=== PATIENT | female | born 1960 | race Caucasian/White ===

== ENCOUNTER 2017-11-29 12:53 | Day surgery (SDC) | payer OTHER ==
[~2017-11-29] VITALS: Ht 165.1 cm; Wt 105.4 kg
[~2017-11-29 12:53] MED LIST: ASPI81CH PO; ATOR40TA PO; GLIP2.5ER PO; LOSA50 PO; NEBI5 PO
== END 2017-11-29 15:13 | disposition home or self-care (01) ==
LOC: ORSCSDS 12:53
PROVIDERS: Ophthalmology
PROC: 08RJ3JZ Replacement of Right Lens with Synthetic Substitute, Percutaneous Approach (ICD-10-PCS; principal; 2017-11-29 14:30)
DX: H25.11 Age-related nuclear cataract, right eye (principal); I10 Essential (primary) hypertension; E11.9 Type 2 diabetes mellitus without complications; E78.5 Hyperlipidemia, unspecified; Z86.73 Personal history of transient ischemic attack (TIA), and cerebral infarction without residual deficits; E66.9 Obesity, unspecified; Z68.37 Body mass index [BMI] 37.0-37.9, adult; Z87.891 Personal history of nicotine dependence; Z79.82 Long term (current) use of aspirin; Z79.899 Other long term (current) drug therapy
CPT/HCPCS: 82947; J2250; J3010; V2632

== ENCOUNTER 2018-12-20 19:00 | Emergency (ER) | payer SELFPAY ==
[~2018-12-20] VITALS: Ht 167.6 cm; Wt 102.1 kg
[2018-12-20 19:34] LABS: BASOPHILS ABSOLUTE AUTO 0.03 K/mm3 (0.00-0.23); BASOPHILS PERCENT AUTO 0 % (0-2); EOSINOPHILS ABSOLUTE AUTO 0.23 K/mm3 (0.00-0.68); EOSINOPHILS PERCENT AUTO 3 % (0-6); Hematocrit 41.9 % (33.0-51.0); Hemoglobin 13.2 g/dL (11.5-16.0); IMMATURE GRAN ABSOLUTE AUTO 0.02 K/mm3 (0.00-0.10); IMMATURE GRAN PERCENT AUTO 0 % (0-1); LYMPHOCYTES ABSOLUTE AUTO 2.75 K/mm3 (0.84-5.20); LYMPHOCYTES PERCENT AUTO 35 % (21-46); MONOCYTES ABSOLUTE AUTO 0.39 K/mm3 (0.16-1.47); MONOCYTES PERCENT AUTO 5 % (4-13); Mean Corpuscular HGB 27.3 pg (26.0-34.0); Mean Corpuscular HGB Conc 31.5 g/dL (31.5-36.5); Mean Corpuscular Volume 87 fL (80-100); Mean Platelet Volume 9.5 fL (9.1-12.4); NEUTROPHILS ABSOLUTE AUTO 4.42 K/mm3 (1.96-9.15); NEUTROPHILS PERCENT AUTO 56 % (41-73); Platelet Count 267 K/mm3 (150-400); RDW Coefficient Variation 12.5 % (11.7-14.2); RDW Standard Deviation 39.7 fL (35.1-46.3); Red Blood Cell Count 4.83 M/mm3 (3.80-5.20); White Blood Cell Count 7.84 K/mm3 (4.00-11.30)
[2018-12-20 20:03] LABS: Alanine Aminotransfer (ALT/SGP 33 U/L (12-78); Albumin, Blood 3.9 g/dL (3.4-5.0); Albumin/Globulin Ratio 0.9 (0.8-1.8); Alk Phos 57 U/L (50-136); Anion Gap 8 mmol/L (6-16); Aspartate Aminotrans (AST/SGOT 25 U/L (12-37); Bilirubin, Total 0.4 mg/dL (0.1-1.0); Blood Urea Nitrogen 19 mg/dL (8-24); Bun/Creatinine Ratio 18.8 (12.0-20.0); CO2, Blood 27 mmol/L (21-32); Calcium, Blood 9.3 mg/dL (8.5-10.1); Chloride, Blood 105 mmol/L (98-108); Creatinine, Blood 1.01 mg/dL (0.40-1.00); Globulin, Blood 4.2 g/dL (2.2-4.0); Glomerular Filtration Rate 59 (60-); Glucose, Blood 157 mg/dL (70-99); Potassium, Blood 3.7 mmol/L (3.5-5.5); Sodium, Blood 140 mmol/L (136-145); Total Protein, Blood 8.1 g/dL (6.4-8.2); Troponin I <0.015 ng/mL (0.000-0.040)
[2018-12-20] MEDS ORDERED: CLOP75 PO (22:56)
== END 2018-12-20 23:30 | disposition home or self-care (01) ==
LOC: ER 19:00
PROVIDERS: Emergency Medicine
DX: R20.8 Other disturbances of skin sensation (principal); I10 Essential (primary) hypertension; Z88.0 Allergy status to penicillin; Z79.899 Other long term (current) drug therapy; Z79.82 Long term (current) use of aspirin; E11.9 Type 2 diabetes mellitus without complications; Z87.891 Personal history of nicotine dependence
CPT/HCPCS: 70450; 80053; 84484; 85025; 93005; 93010; 99284-25

== ENCOUNTER 2019-06-16 08:54 | Day surgery (SDC) | payer OTHER ==
[~2019-06-16] VITALS: Ht 167.6 cm; Wt 97.8 kg
[~2019-06-16 08:54] MED LIST changes: +CLOP75 PO
[2019-06-16] MEDS ORDERED: METF500C PO (09:28)
[2019-06-16] MEDS ORDERED: METO25ER PO (09:29)
[2019-06-16] MEDS ORDERED: ASCO500 (09:31)
[2019-06-16] MEDS ORDERED: ACET500 (09:31)
--- NOTE | 2019-06-16 10:21 | NUR ---
06/16/[address] AWARE OF PREOP BLOOD PRESSURE READINGS. NO ORDERS AT THIS TIME.
[2019-07-09] MEDS ORDERED: AMLO10 PO (14:21)
[2019-07-09] MEDS ORDERED: Vitamin D2000 UNIT PO (14:22)
== END 2019-06-16 11:32 | disposition home or self-care (01) ==
LOC: ORSCSDS 08:54
PROVIDERS: Internal Medicine Gastroenterology
PROC: 0DBM8ZX Excision of Descending Colon, Via Natural or Artificial Opening Endoscopic, Diagnostic (ICD-10-PCS; principal; 2019-06-16 10:30)
PROC: 0DBN8ZX Excision of Sigmoid Colon, Via Natural or Artificial Opening Endoscopic, Diagnostic (ICD-10-PCS; principal; 2019-06-16 10:30)
DX: Z12.11 Encounter for screening for malignant neoplasm of colon (principal); D12.4 Benign neoplasm of descending colon; D12.5 Benign neoplasm of sigmoid colon; K57.30 Diverticulosis of large intestine without perforation or abscess without bleeding; Z80.0 Family history of malignant neoplasm of digestive organs; E11.9 Type 2 diabetes mellitus without complications; I10 Essential (primary) hypertension; Z87.891 Personal history of nicotine dependence; Z79.84 Long term (current) use of oral hypoglycemic drugs; Z79.899 Other long term (current) drug therapy; Z79.01 Long term (current) use of anticoagulants
CPT/HCPCS: 82947; 88305; J2704; J7120

== ENCOUNTER 2019-07-21 10:06 | Day surgery (SDC) | payer OTHER ==
[~2019-07-21] VITALS: Ht 167.6 cm; Wt 98.1 kg
[~2019-07-21 10:06] MED LIST changes: +ACET500; +AMLO10 PO; +ASCO500; +METF500C PO; +METO25ER PO; +Vitamin D2000 UNIT PO
--- NOTE | 2019-07-21 10:51 | NUR ---
Ambulatory in Day Surgery. History, Chart, Medications and Allergies reviewed before start of procedure. Lungs clear T/O to Auscultation. Patient confirms NPO status and agrees with scheduled surgery. Pre-Op teaching done. Pt verbalizes understanding. Patient reports completing Chlorhexadine shower X2 prior to admission to hospital.
--- NOTE | 2019-07-21 18:40 | NUR ---
SHIFT SUMMARY POD 0 L TKA. DRESSING C/D/I WITH POLAR PACK ON. DENIES PAIN. UNABLE TO GET OUT OF BED YET D/T NUMBNESS IN BLE. DID NOT WORK WITH THERAPY R/T NUMBNESS. NO VOID, BLADDER SCAN PREFORMED AND SHOWED 194ML. TOLERATING SMALL AMOUNTS OF PO. CALL LIGHT WITHIN REACH AND FAMILY AT BEDSIDE.
[2019-07-22 04:36] LABS: BASOPHILS ABSOLUTE AUTO 0.01 K/mm3 (0.00-0.23); BASOPHILS PERCENT AUTO 0 % (0-2); EOSINOPHILS ABSOLUTE AUTO 0.01 K/mm3 (0.00-0.68); EOSINOPHILS PERCENT AUTO 0 % (0-6); Hematocrit 38.8 % (33.0-51.0); Hemoglobin 12.1 g/dL (11.5-16.0); IMMATURE GRAN ABSOLUTE AUTO 0.04 K/mm3 (0.00-0.10); IMMATURE GRAN PERCENT AUTO 0 % (0-1); LYMPHOCYTES ABSOLUTE AUTO 1.57 K/mm3 (0.84-5.20); LYMPHOCYTES PERCENT AUTO 15 % (21-46); MONOCYTES PERCENT AUTO 5 % (4-13); Mean Corpuscular HGB 27.2 pg (26.0-34.0); Mean Corpuscular HGB Conc 31.2 g/dL (31.5-36.5); Mean Corpuscular Volume 87 fL (80-100); Mean Platelet Volume 10.5 fL (9.1-12.4); NEUTROPHILS ABSOLUTE AUTO 8.71 K/mm3 (1.96-9.15); NEUTROPHILS PERCENT AUTO 80 % (41-73); Platelet Count 205 K/mm3 (150-400); RDW Coefficient Variation 12.1 % (11.7-14.2); RDW Standard Deviation 38.8 fL (35.1-46.3); Red Blood Cell Count 4.45 M/mm3 (3.80-5.20); White Blood Cell Count 10.84 K/mm3 (4.00-11.30)
[2019-07-22 04:53] LABS: Calcium, Blood 8.7 mg/dL (8.5-10.1); Creatinine, Blood 1.23 mg/dL (0.40-1.00); Magnesium, Blood 1.6 mg/dL (1.6-2.4); Potassium, Blood 4.5 mmol/L (3.5-5.5)
--- NOTE | 2019-07-22 05:01 | NUR ---
SHIFT SUMMARY PT BEEN RESTING QUIETLY. PT BEEN ASSISTED WITH ADL'S PRN. PT VOIDING. PT BEEN MED PRN PAIN.
--- NOTE | 2019-07-22 10:13 | NUR ---
WORKED WITH THERAPY THIS MORNING. DISCUSSED FREQUENT SHORT AMULATION IN HALLWAY AND ANKLE PUMPS. THERAPY PLANS TO RETURN AND WORK WITH PT AGAIN THIS AFTERNOON.
[2019-07-22] MEDS ORDERED: ONDA4ODT PO (11:10)
[2019-07-22] MEDS ORDERED: OXYC5 PO (11:11)
--- NOTE | 2019-07-22 14:28 | NUR ---
Patient is in the discharge process but asks for a prayer of blessing on their way out. I gladly provide prayer. Patient and family voice appreciation.
--- NOTE | 2019-07-22 17:30 | NUR ---
SHIFT SUMMARY PT D/C HOME WITH SPOUSE VIA WHEELCHAIR AT APPROX 1446. DISCHARGE INSTRUCTIONS GIVEN TO PT AND SPOUSE, ALONG WITH SCRIPT AND PERSONAL BELONGINGS. OTHER SCRIPT CALLED INTO PHARMACY OF PT CHOICE. PT AND FAMILY VERBALIZED UNDERSTANDING ADN DECLINED ANY FURTHER CONCERNS AT THIS TIME.
== END 2019-07-22 14:45 | disposition home or self-care (01) ==
LOC: ORSCMMR 10:06 → ORD 11:45 → SURS 14:26 → ORSCMMR 07-22 14:45
PROVIDERS: Orthopaedic Surgery
PROC: 0SRD0J9 Replacement of Left Knee Joint with Synthetic Substitute, Cemented, Open Approach (ICD-10-PCS; principal; 2019-07-21 11:45)
DX: M17.12 Unilateral primary osteoarthritis, left knee (principal); E11.22 Type 2 diabetes mellitus with diabetic chronic kidney disease; I12.9 Hypertensive chronic kidney disease with stage 1 through stage 4 chronic kidney disease, or unspecified chronic kidney disease; N18.9 Chronic kidney disease, unspecified; Z87.891 Personal history of nicotine dependence; Z79.84 Long term (current) use of oral hypoglycemic drugs; Z86.73 Personal history of transient ischemic attack (TIA), and cerebral infarction without residual deficits; Z79.01 Long term (current) use of anticoagulants; Z79.899 Other long term (current) drug therapy
CPT/HCPCS: 36415; 73560-LT; 80048; 82947; 83735; 85025; 88300; 97110; 97116; 97162; 97530; C1713; C1776; J0171; J0690; J0735; J1100; J1885; J2250; J2405; J2704; J2795; J3010; J7120

== ENCOUNTER → 2021-04-18 | Outpatient (CLI) | payer OTHER ==
[~2021-04-18] MED LIST changes: +ONDA4ODT PO; +OXYC5 PO
[2021-04-22 15:09] LABS: COTININE <10.0 ng/mL (.); NICOTINE <10.0 ng/mL (.)
== END ==
LOC: LAB 14:08 → LAB SHORT 14:08
PROVIDERS: Counselor Professional
DX: H25.12 Age-related nuclear cataract, left eye (principal)
CPT/HCPCS: G0480

== ENCOUNTER → 2021-06-07 | Outpatient (CLI) | payer OTHER ==
[2021-06-10 14:11] LABS: HPV 16 Negative (Negative); HPV 18 Negative (Negative); HPV OTHER HR TYPES Negative (Negative)
== END ==
LOC: LAB SHORT 18:11 → LAB 18:11
PROVIDERS: Student in an Organized Health Care Education/Training Program
DX: Z01.419 Encounter for gynecological examination (general) (routine) without abnormal findings (principal)
CPT/HCPCS: 87624; G0145

== ENCOUNTER 2025-05-29 08:14 | Day surgery (SDC) | payer OTHER ==
[2025-06-01] MEDS ORDERED: ACET500 PO (12:46)
[2025-06-01] MEDS ORDERED: ASCO500 PO (12:47)
[2025-06-01] MEDS ORDERED: ERGO50000 PO (12:48)
[2025-06-01] MEDS ORDERED: METF500 PO (12:50)
[2025-06-01] MEDS ORDERED: OZEMPIC2 MG/0.75 SC (12:51)
[2025-06-01] MEDS ORDERED: ZINC15 PO (12:52)
== END 2025-05-29 23:00 | disposition home or self-care (01) ==
LOC: MOI US 08:14
DX: C50.412 Malignant neoplasm of upper-outer quadrant of left female breast (principal)
CPT/HCPCS: 19285; 77065; A4648

== ENCOUNTER 2025-06-04 07:05 | Day surgery (SDC) | payer OTHER ==
[~2025-06-04] VITALS: Ht 165.1 cm; Wt 92.4 kg
[2025-06-04] VITALS (9 sets, daily range): BP systolic 129–187; BP diastolic 70–95
[~2025-06-04 07:05] MED LIST changes: +ACET500 PO; +ASCO500 PO; +ERGO50000 PO; +METF500 PO; +OZEMPIC2 MG/0.75 SC; +ZINC15 PO
[2025-06-04] MEDS ORDERED: CeFAZolin Sodium 2,000 MG in NS 100 ML IV SCH (07:45)
[2025-06-04] MEDS ORDERED: MERIBIN5 M1 PO (08:21)
--- NOTE | 2025-06-04 09:00 | NUR ---
History, Chart, Medications and Allergies reviewed before start of procedure. Patient up to Ambulate independently. Gait steady. Pre-Op teaching done. Pt verbalizes understanding. Patient confirms NPO status and agrees with scheduled surgery. Patient reports completing Chlorhexadine shower X1 prior to admission to hospital. Surgical site prepped with 2% Chlorhexidine cloth wipe. Lungs clear T/O to Auscultation. Patient States Post-Procedure ride home has been arranged.
[2025-06-04] MEDS ORDERED: Bupivacaine 0.5% HCl 5 MG/ML 30MLVIAL ONE (09:14)
[2025-06-04] MEDS ORDERED: Rocuronium Bromide 10 MG/ML 5ML Injection IV ONE (09:39)
[2025-06-04] MEDS ORDERED: Midazolam HCl 1MG / ML 2ML Vial ONE (09:41)
[2025-06-04] MEDS ORDERED: Metoprolol Tartrate 5 ML IV ONE (09:55)
[2025-06-04] MEDS ORDERED: Phenylephrine HCl 100 MCG/ML-NS 10MLSYR (1MG/10ML) ONE (10:06)
[2025-06-04] MEDS ORDERED: FentaNYL Citrate 50 MCG/ML 2 ML Injection ONE (10:59)
[2025-06-04] MEDS ORDERED: Ondansetron HCl 2 MG / ML 2ML Vial ONE (11:04)
[2025-06-04] MEDS ORDERED: Dexamethasone Sod Phos 10 MG/ML 1ML VIAL ONE (11:04)
[2025-06-04] MEDS ORDERED: Sugammadex Sodium 200 MG/2ML SDV (100 MG/ML) ONE (11:10)
[2025-06-04] MEDS ORDERED: OxyCODONE 5 mg/Acetamin 325 mg TABLET PO PRN (11:25)
[2025-06-04] MEDS ORDERED: Ondansetron HCl 2 MG / ML 2ML Vial IV PRN (11:40)
[2025-06-04] MEDS ORDERED: Prochlorperazine Edisylate 10 mg Vial IV PRN (11:40)
[2025-06-04] MEDS ORDERED: HYDROmorphone HCl/Pf 1MG SYR IV PRN ×2 (11:40)
[2025-06-04] MEDS ORDERED: FentaNYL Citrate 50 MCG/ML 2 ML Injection IV PRN ×2 (11:40)
[2025-06-04] MEDS ORDERED: HYDROmorphone HCl/Pf 1MG SYR ONE (11:47)
--- NOTE | 2025-06-04 12:56 | NUR ---
TO STEP POST LUMPECTOMY. RIGHT BREAST SURGICAL SITE WITH GAUZE/BINDER CDI. REPORTS MINIMAL NAUSEA, "BURNING" PAIN /. LENA PO WELL. PT/FAMILY VERBALIZED UNDERSTANDING OF DC INSTRUCTIONS/WOUND CARE/FOLLOW UP/MEDICATIONS. DC'D IV INTACT. UP TO BR WITH STEADY GAIT. DC'D VIA WC TO PRIVATE CAR WITH PRESIDENT.
== END 2025-06-04 12:35 | disposition home or self-care (01) ==
LOC: ORSCMMR 07:05 → NM 07:05 → ORSCMMR 07:35 → NM 08:30
PROVIDERS: Surgery
PROC: 0HBU0ZZ Excision of Left Breast, Open Approach (ICD-10-PCS; principal; 2025-06-04 09:00)
DX: C50.412 Malignant neoplasm of upper-outer quadrant of left female breast (principal); D36.0 Benign neoplasm of lymph nodes; Z17.0 Estrogen receptor positive status [ER+]; Z17.22 Progesterone receptor negative status; Z17.32 Human epidermal growth factor receptor 2 negative status; I10 Essential (primary) hypertension; Z86.73 Personal history of transient ischemic attack (TIA), and cerebral infarction without residual deficits; E11.9 Type 2 diabetes mellitus without complications; Z79.84 Long term (current) use of oral hypoglycemic drugs; Z79.899 Other long term (current) drug therapy; Z79.02 Long term (current) use of antithrombotics/antiplatelets; N28.9 Disorder of kidney and ureter, unspecified; Z79.85 Long-term (current) use of injectable non-insulin antidiabetic drugs
CPT/HCPCS: 38792; 76098; 82947; 88307; 88342; A9270; A9520; J0690; J1100; J1171; J2250; J2371; J2405; J2704; J3010; J7120; Q9968

== ENCOUNTER 2025-06-24 08:24 | Day surgery (SDC) | payer OTHER ==
[2025-06-24] VITALS (7 sets, daily range): BP systolic 141–171; BP diastolic 71–88
[~2025-06-24] VITALS: Ht 165.1 cm; Wt 91.2 kg
[~2025-06-24 08:24] MED LIST changes: +ERGO50000; +MERIBIN5 M1 PO
[2025-06-24] MEDS ORDERED: CeFAZolin Sodium 2,000 MG in NS 100 ML IV SCH (09:20)
[2025-06-24] MEDS ORDERED: CeFAZolin Sodium 2,000 MG VIAL ONE (09:50)
[2025-06-24] MEDS ORDERED: FentaNYL Citrate 50 MCG/ML 2 ML Injection ONE (09:56)
[2025-06-24] MEDS ORDERED: Rocuronium Bromide 10 MG/ML 5ML Injection IV ONE (09:57)
[2025-06-24] MEDS ORDERED: Bupivacaine 0.5% HCl 5 MG/ML 30MLVIAL ONE (09:58)
[2025-06-24] MEDS ORDERED: Dexamethasone Sod Phos 10 MG/ML 1ML VIAL ONE (10:21)
[2025-06-24] MEDS ORDERED: Ondansetron HCl 2 MG / ML 2ML Vial ONE (10:21)
[2025-06-24] MEDS ORDERED: Metoclopramide HCl 5MG / ML 2ML Vial IV PRN (10:30)
[2025-06-24] MEDS ORDERED: HYDROmorphone HCl/Pf 1MG SYR IV PRN ×2 (10:30→10:35)
[2025-06-24] MEDS ORDERED: Phenylephrine HCl 100 MCG/ML-NS 10MLSYR (1MG/10ML) ONE (10:30)
[2025-06-24] MEDS ORDERED: Albuterol 2.5 MG/3 ML VIAL INH PRN (10:30)
[2025-06-24] MEDS ORDERED: FentaNYL Citrate 50 MCG/ML 2 ML Injection IV PRN ×2 (10:30→10:35)
[2025-06-24] MEDS ORDERED: ePHEDrine Sulfate 50 MG/ML 1ML Injection ONE (10:30)
[2025-06-24] MEDS ORDERED: HYDROcodone 5-APAP 325 TAB PO PRN (11:20)
--- NOTE | 2025-06-24 11:27 | NUR ---
1118 - PT TO PACU FROM OR. ON NRB UPON ARRIVAL. ANESTH MADE AWARE OF SLIGHT EXPIRATORY WHEEZES, NO PHARMACOLOGICAL INTERVENTION ORDERED AT THIS TIME. THIS RN ENCOURAGED COUGH AND DEEP BREATHING. 1125 - PT WEANED TO ROOM AIR. EYES OPEN, CONTINUES TO DENY PAIN. VSS. DSG CDI.
--- NOTE | 2025-06-24 11:49 | NUR ---
REPORT RECEIVED FROM DESKTOP PUBLISHER. RICKI. PT ON RA. PT ABLE TO REPOSITION SELF IN BED. PT REQUESTING PO FLUIDS AND LENA THEM WELL. PT REP BURNING TO LEFT BREAST THAT SHE REPORTS IS TOLERABLE. PT DENIES NAUSEA. PT HAS GAUZE TO LEFT BREAST AND BREAST BINDER IN PLACE CDI. PT FAMILY AT BEDSIDE.
--- NOTE | 2025-06-24 12:07 | NUR ---
Patient up to Ambulate independently. Gait steady. Discharge instructions reviewed with patient and her spouse. Patient verbalizes understanding. Copy given to patient to take home. Dressing to procedure site clean, dry, intact with no visible drainage, swelling, erythema or bruising noted. Patient States Post-Procedure ride home has been arranged. Discharged via wheelchair to private car for ride home. Pt belongings returned to pt.
== END 2025-06-24 12:09 | disposition home or self-care (01) ==
LOC: ORSCMMR 08:24 → ORD 09:45 → ORSCMMR 10:45
PROVIDERS: Surgery
PROC: 0HBU0ZZ Excision of Left Breast, Open Approach (ICD-10-PCS; principal; 2025-06-24 09:30)
DX: C50.412 Malignant neoplasm of upper-outer quadrant of left female breast (principal); Z17.0 Estrogen receptor positive status [ER+]; Z17.22 Progesterone receptor negative status; Z17.32 Human epidermal growth factor receptor 2 negative status; E78.5 Hyperlipidemia, unspecified; E21.3 Hyperparathyroidism, unspecified; E11.22 Type 2 diabetes mellitus with diabetic chronic kidney disease; I12.9 Hypertensive chronic kidney disease with stage 1 through stage 4 chronic kidney disease, or unspecified chronic kidney disease; N18.30 Chronic kidney disease, stage 3 unspecified; E66.9 Obesity, unspecified; Z68.33 Body mass index [BMI] 33.0-33.9, adult; Z79.02 Long term (current) use of antithrombotics/antiplatelets; Z79.84 Long term (current) use of oral hypoglycemic drugs; Z79.85 Long-term (current) use of injectable non-insulin antidiabetic drugs; Z79.899 Other long term (current) drug therapy; Z87.891 Personal history of nicotine dependence
CPT/HCPCS: 82947; 88307; J0690; J1100; J2371; J2405; J2704; J3010; J7120